=== PATIENT | female | born 1995 | race Two or more races ===

== ENCOUNTER 2017-08-24 17:27 | Inpatient (IN) | payer OTHER ==
[2017-08-24 18:15] LABS: APPEARANCE,URINE SLIGHTLY-CLOUDY; BILIRUBIN,URINE NEGATIVE (NEGATIVE); COLOR,URINE YELLOW; GLUCOSE, URINE NEGATIVE (NEGATIVE); KETONES,URINE NEGATIVE (NEGATIVE); LEUKOCYTE ESTERASE,URINE SMALL (NEGATIVE); NITRITE,URINE NEGATIVE (NEGATIVE); PROTEIN,URINE NEGATIVE (NEGATIVE); URINE SPECIFIC GRAVITY 1.009; UROBILINOGEN,URINE NEGATIVE mg/dL (<2.0)
[2017-08-24 18:30] LABS: URINE AMPHETAMINES SCREEN NEGATIVE; URINE BARBITURATES SCREEN NEGATIVE; URINE BENZODIAZEPINES SCREEN NEGATIVE; URINE COCAINE SCREEN NEGATIVE; URINE MARIJUANA (THC) SCREEN NEGATIVE; URINE METHADONE SCREEN NEGATIVE; URINE PHENCYCLIDINE SCREEN NEGATIVE
[2017-08-24] MEDS ORDERED: RINGERS SOLUTION,LACTATED 1,000 ML IV PRN (19:59)
[2017-08-24] MEDS ORDERED: PENICILLIN G POTASSIUM 5,000,000 UNIT in DEXTROSE 5%-WATER 100 ML IV ONE (19:59)
[2017-08-24] MEDS ORDERED: RINGERS SOLUTION,LACTATED 1,000 ML IV ONE (19:59)
[2017-08-24] MEDS ORDERED: PENICILLIN G-K 5 MILLION UNIT VIAL ONE ×2 (20:19→23:37)
[2017-08-24 20:41] LABS: ABSOLUTE BASOPHILS # (AUTO) 0.1 10^3/uL (0.0-0.2); ABSOLUTE LYMPHOCYTES (AUTO) 1.9 10^3/uL (0.5-4.7); ABSOLUTE MONOCYTES (AUTO) 0.8 10^3/uL (0.1-1.4); ABSOLUTE NEUT (AUTO) 11.8 10^3/uL (1.7-8.2); BASOPHILS % (AUTO) 0.5 % (0-2); EOSINOPHILS % (AUTO) 0.3 % (0-6); HEMATOCRIT 35.3 % (36.0-47.0); LYMPHOCYTES % (AUTO) 13.2 % (13-45); MEAN CORPUSCULAR HEMOGLOBIN 29.4 pg (27.0-33.4); MEAN CORPUSCULAR HGB CONC 33.8 g/dL (32.0-36.0); MEAN CORPUSCULAR VOLUME 87 fl (80-97); MONOCYTES % (AUTO) 5.7 % (3-13); PLATELET COUNT 241 10^3/uL (150-450); RED BLOOD COUNT 4.07 10^6/uL (3.72-5.28); RED CELL DISTRIBUTION WIDTH 15.9 % (11.5-14.0); SEGMENTED NEUTROPHILS % (AUTO) 80.3 % (42-78); TOTAL CELLS COUNTED % (AUTO) 100 %; WHITE BLOOD COUNT 14.7 10^3/uL (4.0-10.5)
[2017-08-24] MEDS ORDERED: MISOPROSTOL 0.2 MG TABLET ONE (21:06)
[2017-08-24] MEDS ORDERED: OXYTOCIN/NORMAL SALINE 20 UNIT/1,000 ML RTUINJ ONE (21:06)
[2017-08-24] MEDS ORDERED: LIDOCAINE 1% INJ-PF (10 MG/ML) 30 ML SDV ONE (21:06)
--- NOTE | 2017-08-24 21:58 | Admission Physical ---
Datetime Report Generated by CPN: 08/24/2017 21:58 CURRENT ADMISSION Chief Complaint: Uterine Contractions Indication for Induction: Not Applicable Admit Impression : Term, Intrauterine ; Active Labor; Intact Membranes Admit Plan: Admit to Unit; Initiate Labor Protocol ALLERGIES Medication Allergies: No Medication Allergies: No Known Allergies (08/24/2017) Latex: No Latex Allergies OBSTETRICAL HISTORY EDC: 08/25/2017 00:00 : 1 Para: 0 Term: 0 : 0 SAB: 0 IAB: 0 Ectopic: 0 Livin Cesareans: 0 VBACs: 0 Multiple Births: 0 Gestational Diabetes: No Rh Sensitization: No Incompetent Cervix: No CAMELIA: No Infertility: No ART Treatment: No Uterine Anomaly: No IUGR: No Hx Previous C/S: No Macrosomia: No Hx Loss/Stillborn: No PIH: No Hx : No Placenta Previa/Abruption: No Depression/PP Depression: No PTL/PROM: No Post Hemorrhage: No Current Procedures: Ultrasound Obstetrical History Comments: G1- current SEE RECORDS Alcohol: No Marijuana : No Cocaine: No Other Illicit Drugs: No Cigarettes: Never Smoker. [id number] MEDICAL HISTORY Diabetes: No Blood Transfusion: No Pulmonary Disease (Asthma, TB): No Breast Disease: No Hypertension: No Global Marketing Intern Surgery: No Heart Disease: No Hosp/Surgery: Yes Autoimmune Disorder: No Anesthetic Complications: No Kidney Disease: No Abnormal Pap Smear: No Neuro/Epilepsy: No Psychiatric Disorders: No Other Medical Diseases: No Hepatitis/Liver Disease: No Significant Family History: No Varicosities/Phlebitis: No Thyroid Dysfunction: No Medical History Comments: wisdom teeth 2016 INFECTIOUS HISTORY Gonorrhea: No Genital Herpes: No Chlamydia: No Tuberculosis: No Syphilis: No Hepatitis: No HIV/AIDS Exposure: No Rash or Viral Illness: No HPV: No PHYSICAL EXAM General: Normal HEENT: Normal Neurologic: Normal Thyroid: Deferred Heart: Normal Lungs: Normal Breast: Deferred Back: Normal Abdomen: Normal Genitourinary Exam: Normal Extremities: Normal DTRs: Normal Pelvic Type: Adequate Vital Signs: Reviewed VAGINAL EXAM Dilatation: 4 Effacement: 80 Station: -2 Contraction Comments: q 2-3 MEMBRANES Membranes: Intact FETUS A EGA: 39.6 Monitoring: External US FHR- Baseline: 135 Variability: Moderate 6-25bpm Accelerations: 15X15 Decelerations: None FHR Category: Category I Presentation: Vertex Admit Comment: 21yo at 39+6wga presents with regular uterine ctx and cervical change from 2cm to 4cm with ambulation. GBS pos - PCN for GBS pos. uncomplicated except for transfer from CT at 24 wks with incomplete anatomy - completed at [facility]. no other complications. She desires to not have epidural. Anticipate . PLANS FOR LABOR AND DELIVERY Labor and Delivery: None Pain Management: Natural Feeding Preference: Breast Benefit of Breast Feed Discussed: Yes Circumcision: Yes INFORMED CONSENT Informed Consent Obtained: Vaginal Delivery; Risks, Benefits and Alternatives Discussed Signature: with User ID: [email or web address]
[2017-08-25] MEDS ORDERED: PENICILLIN G POTASSIUM 2,500,000 UNIT in DEXTROSE 5%-WATER 50 ML IV SCH ×2
[2017-08-25] MEDS ORDERED: LIDOCAINE 1% INJ-PF (10 MG/ML) 30 ML SDV ONE (02:50)
[2017-08-25] MEDS ORDERED: ZOLPIDEM TARTRATE 5 MG TABLET PO PRN (03:14)
[2017-08-25] MEDS ORDERED: ACETAMINOPHEN 325 MG TABLET PO PRN (03:14)
[2017-08-25] MEDS ORDERED: PROMETHAZINE HCL 25 MG SUPP.RECT PR PRN (03:14)
[2017-08-25] MEDS ORDERED: MEASLES,MUMPS&RUBELLA VACC/PF 0.5 ML VIAL SUBCUT PRN (03:14)
[2017-08-25] MEDS ORDERED: PROMETHAZINE HCL INJ 25 MG/1 ML VIAL IV PRN (03:14)
[2017-08-25] MEDS ORDERED: DIBUCAINE 1% OINTMENT 28 GM TP PRN (03:14)
[2017-08-25] MEDS ORDERED: ACETAMINOPHEN WITH CODEINE #3 TABLET PO PRN (03:14)
[2017-08-25] MEDS ORDERED: DIPH/PERTUSS(ACELL)/TETANUS VAC/PF 0.5 ML SYR (>=10YO) IM PRN (03:14)
[2017-08-25] MEDS ORDERED: DIPHENHYDRAMINE HCL 25 MG CAPSULE PO PRN (03:14)
[2017-08-25] MEDS ORDERED: NA PHOS,M-B/NA PHOS,DI-BA (ADULT) 133 ML ENEMA PR PRN (03:14)
[2017-08-25] MEDS ORDERED: MAGNESIUM HYDROXIDE SUSP 30 ML UDCUP PO PRN (03:14)
[2017-08-25] MEDS ORDERED: MISOPROSTOL 0.2 MG TABLET PR PRN (03:14)
[2017-08-25] MEDS ORDERED: GLYCERIN/WITCH HAZEL LEAF 1 EACH MED..PAD TP PRN (03:14)
[2017-08-25] MEDS ORDERED: PSEUDOEPHEDRINE HCL 30 MG TABLET PO PRN (03:14)
[2017-08-25] MEDS ORDERED: PROMETHAZINE HCL 25 MG TABLET PO PRN (03:14)
[2017-08-25] MEDS ORDERED: OXYTOCIN/NORMAL SALINE 20 UNIT/1,000 ML RTUINJ IV PRN (03:14)
[2017-08-25] MEDS ORDERED: BENZOCAINE/MENTHOL AEROSOL SPRAY 56 ML TOP PRN (03:14)
[2017-08-25] MEDS ORDERED: IBUPROFEN 800 MG TABLET ONE (04:01)
[2017-08-25] MEDS ORDERED: ACETAMINOPHEN WITH CODEINE #3 TABLET ONE ×2 (04:01→09:19)
--- NOTE | 2017-08-25 04:50 | Warning Signs in Babies ---
VOD Warning Signs Datetime Report Generated by [facility]: 08/25/2017 04:50 VOD#608 -Warning Signs in Babies: Viewed with Parent(s)/Family (08/24/2017 17:45:Amalia Kntot RN)
--- NOTE | 2017-08-25 04:56 | Delivery Summary ---
Del Sum A-C Datetime Report Generated by CPN: 08/25/2017 04:56 DELIVERY PERSONNEL DELIVERY PERSONNEL: [id number] Delivery Doctor:: Soco Kessler MD Labor and Delivery Nurse:: Amalia Knott RNsenior windows engineer Nurse:: JS Watts Eviction Specialist:: Suyaap Rivera RN Nursery Nurse:: Suyapa Rivera RN Site Safety Manager/DIRECTOR OF INFECTION PREVENTION: Shital Baugh, ST MATERNAL INFORMATION Delivery Anesthesia: Local Medications After Delivery: Pitocin Drip 20 Units/1000ml NSS; Other-Please Comment Meds After Delivery Comment: 1000 mcg per rectum Maternal Complications: None Provider Comments: VMI delivered in [place] presentation with compound left hand. No nuchal cord. Shoulders and body delivered without difficulty. Cord doubly clamped and cut and to maternal abdomen for NRP. Placenta delivered intact spontaneously. FF at U with intermittent atony - cytotec 1000mcg placed per rectum. 3rd degree perineal laceration repaired in layerd fashion to return tissue integrity. Good hemostasis. Mother and baby stable upon provider leaving the room. LABOR SUMMARY EDC: 08/25/2017 00:00 No. Babies in Womb: 1 Attempted: No Labor Anesthesia: None LABOR INFORMATION Reason for Induction: Not Applicable Onset of Labor: 08/24/2017 12:00 Complete Dilatation: 08/25/2017 01:59 Oxytocin: N/A Group B Beta Strep: Positive Antibiotics # of Doses: 2 Antibiotics Time of Last Dose: 7765 Name of Antibiotic Given: penicillin Steroids Given: None Reason Steroids Not Administered: Not Applicable MEMBRANES Membranes Rupture Method: Artificial Rupture of Membranes: 08/24/2017 23:27 Length of Rupture (hr): 3.00 Amniotic Fluid Color: Clear Amniotic Fluid Amount: Moderate Amniotic Fluid Odor: Normal STAGES OF LABOR Stage 1 hr: 13 Stage 1 min: 59 Stage 2 hr: 0 Stage 2 min: 28 Stage 3 hr: 0 Stage 3 min: 3 Total Time in Labor hr: 14 Total Time in Labor min: 30 VAGINAL DELIVERY Episiotomy: None Laceration #1: Perineal Laceration Extension #1: Third Degree, IIIb (Greater than 50 percent ext anal sphincter thickness torn) Laceration Repair: Yes Laceration Repair Note: 3b perineal laceration repaired in layered fashion as usual reapproximating each muscle layer and then subQ layer. Good hemostasis. no sutures in rectum and rectal mucosa intact Sponge Count Correct: Yes Sharps Count Correct: Yes CSECTION DELIVERY Primary Indication: N/A Secondary Indication: N/A CSection Incidence: N/A Labor: N/A Elective: N/A CSection Incision: N/A BABY A INFORMATION Infant Delivery Date/Time: 08/25/2017 02:27 Method of Delivery: Vaginal Born in Route : No : N/A Forceps: N/A Vacuum Extraction: N/A Shoulder Dystocia : No PRESENTATION/POSITION BABY A Presentation: Cephalic Cephalic Presentation: Vertex Vertex Position: Left Occipital Anterior Breech Presentation: N/A PLACENTA INFORMATION BABY A Placenta Delivery Time : 08/25/2017 02:30 Placenta Method of Delivery: Spontaneous Placenta Status: Delivered SCORES BABY A Heart Rate 1 min: >100 bpm Resp Effort 1 min: Good Cry Reflex Irritability 1 min: Cough or Sneeze or Pulls Away Muscle Tone 1 min: Active Motion Color 1 min: Blue/Pale Resuscitation Effort 1 min: Tactile Stimulation SCORE 1 MIN: 8 Heart Rate 5 min: >100 bpm Resp Effort 5 min: Good Cry Reflex Irritability 5 min: Cough or Sneeze or Pulls Away Muscle Tone 5 min: Active Motion Color 5 min: Body [place], Extremities Blue SCORE 5 MIN: 9 INFANT INFORMATION BABY A Gestational Age at Delivery: 40.0 Gestational Status: Full Term- 39- 40.6 Weeks Outcome : Liveborn Condition : Stable Infant Sex: Male IDENTIFICATION BABY A Verification Date/Time: 08/25/2017 02:27 ID Band Number: [id number] Mother's Name Verified: Yes Infant RN Verifying : C. Ashleeilin, RN M. Hill, RN WEIGHT/LENGTH BABY A Infant Birthweight (gm): 4050 Infant Weight (lb): 8 Weight (oz): 15 Length (in): 20.50 Infant Length (cm): 52.07 CORD INFORMATION BABY A No. Cord Vessels: 3 Nuchal Cord : N/A Cord Blood Taken: Yes-For Eval (Mom's Blood Type - or O+) Infant Suction: Mouth; Nose; Pharynx ASSESSMENT BABY A Complications: None Physical Findings at Delivery: Molding of the Head Infant Respirations: Appears Normal Skin to Skin: Yes Library Page/ALS Called : No Care By: M Miguel RN/ D [place] RNC Transferred To: Remains with Mother BABY B INFORMATION : N/A SIGNATURES Signature: with User ID: [email or web address]
[2017-08-25] MEDS ORDERED: OXYCODONE-ACETAMINOPHEN 5-325 MG TABLET ONE (09:16)
[2017-08-25] MEDS: ACETAMINOPHEN WITH CODEINE #3 TABLET PO PRN ×2 (09:20→16:18)
[2017-08-25] MEDS: PRENATAL VITAMIN W DHA CAPSULE PO SCH (12:07)
[2017-08-25] MEDS: IBUPROFEN 800 MG TABLET PO SCH ×3 (12:07→21:44)
[2017-08-25] MEDS: FERROUS SULFATE 325 MG TABLET PO SCH ×2 (12:07→17:29)
[2017-08-25] MEDS: SENNOSIDES/DOCUSATE 8.6-50 MG 1 EACH TABLET PO SCH (12:07)
[2017-08-25] MEDS: DOCUSATE SODIUM 100 MG CAPSULE PO SCH ×2 (12:07→17:30)
[2017-08-25] MEDS: FAMOTIDINE 20 MG TABLET PO SCH ×2 (12:07→21:44)
[2017-08-26] MEDS: IBUPROFEN 800 MG TABLET PO SCH ×3 (07:04→21:37)
[2017-08-26 07:13] LABS: HEMATOCRIT 31.3 % (36.0-47.0); HEMOGLOBIN 10.7 g/dL (12.0-15.5); MEAN CORPUSCULAR HEMOGLOBIN 29.8 pg (27.0-33.4); MEAN CORPUSCULAR HGB CONC 34.2 g/dL (32.0-36.0); MEAN CORPUSCULAR VOLUME 87 fl (80-97); PLATELET COUNT 195 10^3/uL (150-450); RED CELL DISTRIBUTION WIDTH 16.5 % (11.5-14.0)
[2017-08-26] MEDS: ACETAMINOPHEN WITH CODEINE #3 TABLET PO PRN (07:49)
--- NOTE | 2017-08-26 09:11 | PDOC PROGRESS REPORT ---
Subjective-OB Progress Note for:: 08/26/17 Subjective: Sitting up in bed, no c/o, voiding, , desires circumcision, eating well, voiding, scant bleeding Physical Exam (OB) Vital Signs: Temp Pulse Resp BP Pulse Ox 98.2 F 80 16 121/71 100 08/26/17 07:51 08/26/17 07:51 08/26/17 07:51 08/26/17 07:51 08/26/17 07:51 Intake & Output 08/25/17 08/26/17 08/27/17 06:59 06:59 06:59 Weight 93.7 kg - PIH/Pre-Eclampsia DTR's: 2 + Clonus: Negative Headache: Absent Epigastric Pain: No Visual Changes: No - Lochia Lochia Amount: Small 10-25 ml Lochia Color: Rubra/Red - Abdomen Description: Soft, Round Hernia Present: No Fundal Description: Firm Fundal Height: u/u - u/2 Objective-Diagnostic Laboratory: 08/26/17 06:44 08/26/17 06:44 WBC 13.0 H RBC 3.60 L Hgb 10.7 L Hct 31.3 L MCV 87 MCH 29.8 MCHC 34.2 RDW 16.5 H Plt Count 195 Assessment and Plan(PN) - Assessment and Plan (1) Obstetrical laceration, third degree Is this a current diagnosis for this admission?: Yes (2) Vaginal delivery Is this a current diagnosis for this admission?: Yes - Time Spent with Patient Time with patient: Less than 15 minutes Medications reviewed and adjusted accordingly: Yes - Disposition Anticipated Discharge: Home Within: within 48 hours
[2017-08-26] MEDS: PRENATAL VITAMIN W DHA CAPSULE PO SCH (09:44)
[2017-08-26] MEDS: DOCUSATE SODIUM 100 MG CAPSULE PO SCH ×2 (09:44→17:48)
[2017-08-26] MEDS: FERROUS SULFATE 325 MG TABLET PO SCH ×2 (09:44→17:49)
[2017-08-26] MEDS: FAMOTIDINE 20 MG TABLET PO SCH ×2 (09:44→21:37)
[2017-08-26] MEDS: SENNOSIDES/DOCUSATE 8.6-50 MG 1 EACH TABLET PO SCH (09:44)
[2017-08-26 21:09] VITALS: BP 114/68
[2017-08-27] MEDS: IBUPROFEN 800 MG TABLET PO SCH ×2 (05:39→13:07)
--- NOTE | 2017-08-27 08:24 | PDOC PROGRESS REPORT ---
Subjective-OB Progress Note for:: 08/27/17 Subjective: Doing well, no c/o, + BM, Physical Exam (OB) Vital Signs: Temp Pulse Resp BP Pulse Ox 98.3 F 88 18 114/68 98 08/26/17 20:09 08/26/17 20:09 08/26/17 20:09 08/26/17 20:09 08/26/17 20:09 Intake & Output 08/26/17 08/27/17 08/28/17 06:59 06:59 06:59 Intake Total 900 Balance 900 - PIH/Pre-Eclampsia DTR's: 2 + Clonus: Negative Headache: Absent Epigastric Pain: No Visual Changes: No - Lochia Lochia Amount: Scant < 10 ml Lochia Color: Rubra/Red - Abdomen Description: Tender, Soft, Round Hernia Present: No Fundal Description: Firm, Midline Fundal Height: u/u - u/2 Objective-Diagnostic Laboratory: 08/26/17 06:44 Assessment and Plan(PN) - Assessment and Plan (1) Obstetrical laceration, third degree Is this a current diagnosis for this admission?: Yes (2) Vaginal delivery Is this a current diagnosis for this admission?: Yes - Time Spent with Patient Medications reviewed and adjusted accordingly: Yes - Disposition Anticipated Discharge: Home Within: Other - home today
--- NOTE | 2017-08-27 08:28 | PDOC DISCHARGE SUMMARY ---
Final Diagnosis Discharge Date: 08/27/17 - Final Diagnosis (1) Obstetrical laceration, third degree Is this a current diagnosis for this admission?: Yes (2) Vaginal delivery Is this a current diagnosis for this admission?: Yes Discharge Data - Discharge Medication Prescriptions: Docusate Sodium [Colace 100 mg Capsule] 100 mg PO BID #60 capsule Home Medications: Vit/Iron Fum/Folic AC [ Tablet] 1 each PO DAILY 08/24/17 Docusate Sodium [Colace 100 mg Capsule] 100 mg PO BID #60 capsule 08/27/17 Gestational Age: 40 Reason(s) for Admission: Onset of Labor, Group B Strep Positive Procedures: NST, Ultrasound Intrapartum Procedure(s): Spontaneous Vaginal Delivery Laceration-Degree: 3rd - [place] Data Baby 1 Male at 1 minute: 8 at 5 minutes: 9 Weight: 4.054 kg Home with Mother: Yes Complications: Yes - jaundice - Diagnosis Test Laboratory: Temp Pulse Resp BP Pulse Ox 98.3 F 88 18 114/68 98 08/26/17 20:09 08/26/17 20:09 08/26/17 20:09 08/26/17 20:09 08/26/17 20:09 08/24/17 08/24/17 08/26/17 17:31 20:16 06:44 RBC 4.07 3.60 L Hgb 12.0 10.7 L Hct 35.3 L 31.3 L Urine Opiates Screen NEGATIVE - Discharge information/Instructions Discharge Activity: Activity As Tolerated, No Lifting Over 10 Pounds, No Lifting /Push/Pulling, Pelvic Rest Discharge Diet: As Tolerated, Regular Disposition: HOME, SELF-CARE Follow up with: [facility] in: 2, Weeks
[2017-08-27] MEDS: DOCUSATE SODIUM 100 MG CAPSULE PO SCH (09:19)
[2017-08-27] MEDS: FERROUS SULFATE 325 MG TABLET PO SCH (09:19)
== END 2017-08-27 13:10 | disposition home or self-care (01) | DRG 775 ==
LOC: LC 17:27 → LR 19:53 → 2S 08-25 10:16
PROVIDERS: ADMIT Student in an Organized Health Care Education/Training Program; ATTEND Student in an Organized Health Care Education/Training Program
PROC: 10E0XZZ Delivery of Products of Conception, External Approach (ICD-10-PCS; principal; 2017-08-25)
PROC: 0DQR0ZZ Repair Anal Sphincter, Open Approach (ICD-10-PCS; 2017-08-25)
DX: O99.824 Streptococcus B carrier state complicating childbirth (principal); O70.22 Third degree perineal laceration during delivery, IIIb; O32.6XX0 Maternal care for compound presentation, not applicable or unspecified; Z3A.39 39 weeks gestation of pregnancy; Z37.0 Single live birth
CPT/HCPCS: 36415; 80307; 81005; 85025; 85027; 86592; 86850; 86900; 86901; 90715; J2540; J2590; J3490

== ENCOUNTER 2018-08-04 00:14 | Inpatient (IN) | payer OTHER ==
[2018-08-04] MEDS ORDERED: OXYTOCIN 10 UNIT/ML VIAL ONE (00:20)
[2018-08-04] MEDS ORDERED: LIDOCAINE 1% INJ-PF (10 MG/ML) 30 ML SDV ONE (00:20)
[2018-08-04] MEDS ORDERED: OXYTOCIN/NORMAL SALINE 20 UNIT/1,000 ML RTUINJ ONE (00:20)
[2018-08-04] MEDS ORDERED: MISOPROSTOL 0.2 MG TABLET ONE (00:20)
[2018-08-04] MEDS ORDERED: PROMETHAZINE HCL 25 MG TABLET PO PRN (00:39)
[2018-08-04] MEDS ORDERED: ACETAMINOPHEN WITH CODEINE #3 TABLET PO PRN ×2 (00:39)
[2018-08-04] MEDS ORDERED: MEASLES,MUMPS&RUBELLA VACC/PF 0.5 ML VIAL SUBCUT PRN (00:39)
[2018-08-04] MEDS ORDERED: OXYTOCIN/NORMAL SALINE 20 UNIT/1,000 ML RTUINJ IV PRN (00:39)
[2018-08-04] MEDS ORDERED: ACETAMINOPHEN 650 MG SUPP.RECT PR PRN (00:39)
[2018-08-04] MEDS ORDERED: MAGNESIUM HYDROXIDE SUSP 30 ML UDCUP PO PRN (00:39)
[2018-08-04] MEDS ORDERED: ZOLPIDEM TARTRATE 5 MG TABLET PO PRN (00:39)
[2018-08-04] MEDS ORDERED: DIBUCAINE 1% OINTMENT 56 GM TP PRN (00:39)
[2018-08-04] MEDS ORDERED: GLYCERIN/WITCH HAZEL LEAF 1 EACH MED..WIPE TP PRN (00:39)
[2018-08-04] MEDS ORDERED: DIPH/PERTUSS(ACELL)/TETANUS VAC/PF 0.5 ML SYR (>=10YO) IM PRN (00:39)
[2018-08-04] MEDS ORDERED: PROMETHAZINE HCL INJ 25 MG/1 ML VIAL IV PRN (00:39)
[2018-08-04] MEDS ORDERED: PROMETHAZINE HCL 25 MG SUPP.RECT PR PRN (00:39)
[2018-08-04] MEDS ORDERED: BENZOCAINE/MENTHOL AEROSOL SPRAY 56 ML TOP PRN (00:39)
[2018-08-04] MEDS ORDERED: PSEUDOEPHEDRINE HCL 30 MG TABLET PO PRN (00:39)
[2018-08-04] MEDS ORDERED: NA PHOS,M-B/NA PHOS,DI-BA (ADULT) 133 ML ENEMA PR PRN (00:39)
[2018-08-04] MEDS ORDERED: DIPHENHYDRAMINE HCL 25 MG CAPSULE PO PRN (00:39)
--- NOTE | 2018-08-04 00:42 | Admission Physical ---
Datetime Report Generated by CPN: 08/04/2018 00:42 CURRENT ADMISSION Chief Complaint: Uterine Contractions Indication for Induction: Not Applicable Admit Impression : Term, Intrauterine Admit Plan: Admit to Unit ALLERGIES Medication Allergies: No Known Allergies (08/24/2017) PHYSICAL EXAM General: Normal HEENT: Normal Neurologic: Normal Thyroid: Normal Heart: Normal Lungs: Normal Breast: Deferred Back: Normal Abdomen: Normal Genitourinary Exam: Normal Extremities: Normal DTRs: Normal Pelvic Type: Adequate INFORMED CONSENT Signature: with User ID: [email or web address]
[2018-08-04] MEDS ORDERED: IBUPROFEN 800 MG TABLET ONE (00:53)
[2018-08-04 01:43] LABS: ABSOLUTE LYMPHOCYTES (AUTO) 1.3 10^3/uL (0.5-4.7); ABSOLUTE MONOCYTES (AUTO) 0.6 10^3/uL (0.1-1.4); ABSOLUTE NEUT (AUTO) 10.5 10^3/uL (1.7-8.2); BASOPHILS % (AUTO) 0.2 % (0-2); EOSINOPHILS % (AUTO) 0.2 % (0-6); HEMATOCRIT 36.7 % (36.0-47.0); HEMOGLOBIN 12.3 g/dL (12.0-15.5); LYMPHOCYTES % (AUTO) 10.6 % (13-45); MEAN CORPUSCULAR HEMOGLOBIN 28.8 pg (27.0-33.4); MEAN CORPUSCULAR HGB CONC 33.5 g/dL (32.0-36.0); MEAN CORPUSCULAR VOLUME 86 fl (80-97); MONOCYTES % (AUTO) 4.9 % (3-13); PLATELET COUNT 213 10^3/uL (150-450); RED BLOOD COUNT 4.27 10^6/uL (3.72-5.28); RED CELL DISTRIBUTION WIDTH 15.1 % (11.5-14.0); SEGMENTED NEUTROPHILS % (AUTO) 84.1 % (42-78); TOTAL CELLS COUNTED % (AUTO) 100 %; WHITE BLOOD COUNT 12.5 10^3/uL (4.0-10.5)
--- NOTE | 2018-08-04 01:50 | Delivery Summary ---
Del Sum A-C Datetime Report Generated by CPN: 08/04/2018 01:50 DELIVERY PERSONNEL DELIVERY PERSONNEL: [id number] Delivery Doctor:: Manny Waddell MD Labor and Delivery Nurse:: Amalia Knott RNtopographical engineer Nurse:: Yola Gallegos RN Ore Mixer/LEAD PROJECT ENGINEER: Guera Shell ST Additional Personnel: : Ghazlaa Thornton RN MATERNAL INFORMATION Delivery Anesthesia: None Medications After Delivery: Pitocin 10 Units IM; Pitocin Drip 20 Units/1000ml NSS Estimated Blood Loss (ml): 200 Maternal Complications: Precipitous Labor (<3hrs) LABOR SUMMARY EDC: 08/15/2018 00:00 No. Babies in Womb: 1 Attempted: No Labor Anesthesia: None LABOR INFORMATION Reason for Induction: Not Applicable Onset of Labor: 08/03/2018 23:30 Complete Dilatation: 08/04/2018 00:16 Oxytocin: N/A Group B Beta Strep: neg Steroids Given: None Reason Steroids Not Administered: Not Applicable MEMBRANES Membranes Rupture Method: Spontaneous Rupture of Membranes: 08/04/2018 00:15 Length of Rupture (hr): 0.12 Amniotic Fluid Color: Clear Amniotic Fluid Amount: Small Amniotic Fluid Odor: Normal STAGES OF LABOR Stage 1 hr: 0 Stage 1 min: 46 Stage 2 hr: 0 Stage 2 min: 6 Stage 3 hr: 0 Stage 3 min: 4 Total Time in Labor hr: 0 Total Time in Labor min: 56 VAGINAL DELIVERY Episiotomy: None Laceration #1: None Laceration Extension #1: N/A Laceration Repair: Not Applicable Sponge Count Correct: N/A CSECTION DELIVERY Primary Indication: N/A Secondary Indication: N/A CSection Incidence: N/A Labor: N/A Elective: N/A CSection Incision: N/A BABY A INFORMATION Delivery Date/Time: 08/04/2018 00:22 Method of Delivery: Vaginal Born in Route : No : N/A Forceps: N/A Vacuum Extraction: N/A Shoulder Dystocia : No PRESENTATION/POSITION BABY A Presentation: Cephalic Cephalic Presentation: Vertex Vertex Position: Left Occipital Anterior Breech Presentation: N/A PLACENTA INFORMATION BABY A Placenta Delivery Time : 08/04/2018 00:26 Placenta Method of Delivery: Spontaneous Placenta Status: Delivered SCORES BABY A Heart Rate 1 min: >100 bpm Resp Effort 1 min: Good Cry Reflex Irritability 1 min: Cough or Sneeze or Pulls Away Muscle Tone 1 min: Active Motion Color 1 min: Body [place], Extremities Blue Resuscitation Effort 1 min: Tactile Stimulation SCORE 1 MIN: 9 Heart Rate 5 min: >100 bpm Resp Effort 5 min: Good Cry Reflex Irritability 5 min: Cough or Sneeze or Pulls Away Muscle Tone 5 min: Active Motion Color 5 min: Body [place], Extremities Blue Resuscitation Effort 5 min: Tactile Stimulation SCORE 5 MIN: 9 INFANT INFORMATION BABY A Infant Outcome : Liveborn Infant Condition : Stable Infant Sex: Female IDENTIFICATION BABY A Verification Date/Time: 08/04/2018 00:32 ID Band Number: [id number] Mother's Name Verified: Yes RN Verifying : Georges Additional Verifying Personnel: SJanis Thornton, RNC CORD INFORMATION BABY A No. Cord Vessels: 3 Nuchal Cord : Around Neck x1, Tight Cord Blood Taken: Yes-For Eval (Mom's Blood Type - or O+) ASSESSMENT BABY A Complications: None Physical Findings at Delivery: Within Normal Limits Skin to Skin: Yes Transferred To: Remains with Mother BABY B INFORMATION : N/A SIGNATURES Signature: with User ID: [email or web address]
--- NOTE | 2018-08-04 02:47 | Delivery Summary ---
Del Sum A-C Datetime Report Generated by CPN: 08/04/2018 02:47 DELIVERY PERSONNEL DELIVERY PERSONNEL: [id number] Delivery Doctor:: Manny Waddell MD Labor and Delivery Nurse:: Amalia Knott RNcarton inspector Nurse:: Yola Gallegos RN Awning Hanger Supervisor/PROFILER OPERATOR: Guera Shell ST Additional Personnel: : Ghazala Thornton RN MATERNAL INFORMATION Delivery Anesthesia: None Medications After Delivery: Pitocin 10 Units IM; Pitocin Drip 20 Units/1000ml NSS Estimated Blood Loss (ml): 200 Maternal Complications: Precipitous Labor (<3hrs) LABOR SUMMARY EDC: 08/15/2018 00:00 No. Babies in Womb: 1 Attempted: No Labor Anesthesia: None LABOR INFORMATION Reason for Induction: Not Applicable Onset of Labor: 08/03/2018 23:30 Complete Dilatation: 08/04/2018 00:16 Oxytocin: N/A Group B Beta Strep: neg Steroids Given: None Reason Steroids Not Administered: Not Applicable MEMBRANES Membranes Rupture Method: Spontaneous Rupture of Membranes: 08/04/2018 00:15 Length of Rupture (hr): 0.12 Amniotic Fluid Color: Clear Amniotic Fluid Amount: Small Amniotic Fluid Odor: Normal STAGES OF LABOR Stage 1 hr: 0 Stage 1 min: 46 Stage 2 hr: 0 Stage 2 min: 6 Stage 3 hr: 0 Stage 3 min: 4 Total Time in Labor hr: 0 Total Time in Labor min: 56 VAGINAL DELIVERY Episiotomy: None Laceration #1: None Laceration Extension #1: N/A Laceration Repair: Not Applicable Sponge Count Correct: N/A CSECTION DELIVERY Primary Indication: N/A Secondary Indication: N/A CSection Incidence: N/A Labor: N/A Elective: N/A CSection Incision: N/A BABY A INFORMATION Delivery Date/Time: 08/04/2018 00:22 Method of Delivery: Vaginal Born in Route : No : N/A Forceps: N/A Vacuum Extraction: N/A Shoulder Dystocia : No PRESENTATION/POSITION BABY A Presentation: Cephalic Cephalic Presentation: Vertex Vertex Position: Left Occipital Anterior Breech Presentation: N/A PLACENTA INFORMATION BABY A Placenta Delivery Time : 08/04/2018 00:26 Placenta Method of Delivery: Spontaneous Placenta Status: Delivered SCORES BABY A Heart Rate 1 min: >100 bpm Resp Effort 1 min: Good Cry Reflex Irritability 1 min: Cough or Sneeze or Pulls Away Muscle Tone 1 min: Active Motion Color 1 min: Body [place], Extremities Blue Resuscitation Effort 1 min: Tactile Stimulation SCORE 1 MIN: 9 Heart Rate 5 min: >100 bpm Resp Effort 5 min: Good Cry Reflex Irritability 5 min: Cough or Sneeze or Pulls Away Muscle Tone 5 min: Active Motion Color 5 min: Body [place], Extremities Blue Resuscitation Effort 5 min: Tactile Stimulation SCORE 5 MIN: 9 INFANT INFORMATION BABY A Infant Outcome : Liveborn Infant Condition : Stable Infant Sex: Female IDENTIFICATION BABY A Verification Date/Time: 08/04/2018 00:32 ID Band Number: [id number] Mother's Name Verified: Yes RN Verifying : Georges Additional Verifying Personnel: S. Hillary, RNC WEIGHT/LENGTH BABY A Infant Birthweight (gm): 3307 Weight (lb): 7 Weight (oz): 5 Infant Length (in): 19.50 Infant Length (cm): 49.53 CORD INFORMATION BABY A No. Cord Vessels: 3 Nuchal Cord : Around Neck x1, Tight Cord Blood Taken: Yes-For Eval (Mom's Blood Type - or O+) ASSESSMENT BABY A Infant Complications: None Physical Findings at Delivery: Within Normal Limits Skin to Skin: Yes Transferred To: Remains with Mother BABY B INFORMATION : N/A SIGNATURES Signature: with User ID: [email or web address]
[2018-08-04 04:11] LABS: URINE AMPHETAMINES SCREEN NEGATIVE; URINE BARBITURATES SCREEN NEGATIVE; URINE BENZODIAZEPINES SCREEN NEGATIVE; URINE COCAINE SCREEN NEGATIVE; URINE MARIJUANA (THC) SCREEN NEGATIVE; URINE METHADONE SCREEN NEGATIVE; URINE PHENCYCLIDINE SCREEN NEGATIVE
[2018-08-04] MEDS: IBUPROFEN 800 MG TABLET PO SCH ×3 (05:17→22:17)
[2018-08-04] MEDS: FERROUS SULFATE 325 MG TABLET PO SCH ×2 (10:00→17:44)
[2018-08-04] MEDS: DOCUSATE SODIUM 100 MG CAPSULE PO SCH ×2 (10:01→17:44)
[2018-08-04] MEDS: FAMOTIDINE 20 MG TABLET PO SCH ×2 (10:01→22:17)
[2018-08-04] MEDS: SENNOSIDES/DOCUSATE 8.6-50 MG 1 EACH TABLET PO SCH (10:01)
[2018-08-04] MEDS: PRENATAL VITAMIN W DHA CAPSULE PO SCH (10:01)
[2018-08-05] MEDS: IBUPROFEN 800 MG TABLET PO SCH (06:39)
[2018-08-05 07:25] LABS: HEMOGLOBIN 12.3 g/dL (12.0-15.5); MEAN CORPUSCULAR HEMOGLOBIN 29.5 pg (27.0-33.4); MEAN CORPUSCULAR HGB CONC 34.2 g/dL (32.0-36.0); MEAN CORPUSCULAR VOLUME 86 fl (80-97); PLATELET COUNT 221 10^3/uL (150-450); RED BLOOD COUNT 4.17 10^6/uL (3.72-5.28); RED CELL DISTRIBUTION WIDTH 15.4 % (11.5-14.0); WHITE BLOOD COUNT 10.3 10^3/uL (4.0-10.5)
[2018-08-05 09:08] VITALS: BP 118/74
[2018-08-05] MEDS: SENNOSIDES/DOCUSATE 8.6-50 MG 1 EACH TABLET PO SCH (09:48)
[2018-08-05] MEDS: PRENATAL VITAMIN W DHA CAPSULE PO SCH (09:48)
[2018-08-05] MEDS: FAMOTIDINE 20 MG TABLET PO SCH (09:48)
[2018-08-05] MEDS: FERROUS SULFATE 325 MG TABLET PO SCH (09:48)
[2018-08-05] MEDS: DOCUSATE SODIUM 100 MG CAPSULE PO SCH (09:48)
--- NOTE | 2018-08-05 10:25 | PDOC PROGRESS REPORT ---
Subjective-OB Progress Note for:: 08/05/18 Subjective: Pt doing well, no concerns. She reports light bleeding, regular diet and voiding without difficulty. She would like to go home today. Physical Exam (OB) Vital Signs: Temp Pulse Resp BP Pulse Ox 98.2 F 79 16 118/74 100 08/05/18 08:00 08/05/18 08:00 08/05/18 08:00 08/05/18 08:00 08/05/18 08:00 Intake & Output 08/04/18 08/05/18 08/06/18 06:59 06:59 06:59 Intake Total 1000 Balance 1000 Weight 213 kg - PIH/Pre-Eclampsia Clonus: Negative Headache: Absent Epigastric Pain: No Visual Changes: No - Lochia Lochia Amount: Small 10-25 ml Lochia Color: Rubra/Red - Abdomen Description: Soft, Round Hernia Present: No Fundal Description: Firm, Midline Fundal Height: u/u - u/2 Objective-Diagnostic Laboratory: 08/05/18 07:09 08/05/18 07:09 WBC 10.3 RBC 4.17 Hgb 12.3 Hct 36.0 MCV 86 MCH 29.5 MCHC 34.2 RDW 15.4 H Plt Count 221 Assessment and Plan(PN) - Assessment and Plan (1) Active labor at term Is this a current diagnosis for this admission?: Yes (2) Vaginal delivery Is this a current diagnosis for this admission?: Yes - Time Spent with Patient Time with patient: Less than 15 minutes Medications reviewed and adjusted accordingly: Yes - Disposition Anticipated Discharge: Home Within: within 24 hours
--- NOTE | 2018-08-05 10:26 | PDOC DISCHARGE SUMMARY ---
Final Diagnosis Discharge Date: 08/05/18 - Final Diagnosis (1) Active labor at term Is this a current diagnosis for this admission?: Yes (2) Vaginal delivery Is this a current diagnosis for this admission?: Yes Discharge Data - Discharge Medication Home Medications: Vit/Iron Fum/Folic AC [ Tablet] 1 each PO DAILY 08/24/17 Docusate Sodium [Colace 100 mg Capsule] 100 mg PO BID #60 capsule 08/27/17 Reason(s) for Admission: Onset of Labor Procedures: NST Intrapartum Procedure(s): Spontaneous Vaginal Delivery - Diagnosis Test Laboratory: Temp Pulse Resp BP Pulse Ox 98.2 F 79 16 118/74 100 08/05/18 08:00 08/05/18 08:00 08/05/18 08:00 08/05/18 08:00 08/05/18 08:00 08/04/18 08/04/18 08/05/18 01:34 03:48 07:09 RBC 4.27 4.17 Hgb 12.3 12.3 Hct 36.7 36.0 Urine Opiates Screen NEGATIVE - Discharge information/Instructions Discharge Activity: Balance Activity w/Rest, Pelvic Rest Discharge Diet: Regular Disposition: HOME, SELF-CARE Follow up with: [facility] in: 4, Weeks
== END 2018-08-05 13:24 | disposition home or self-care (01) | DRG 807 ==
LOC: LC 00:14 → LR 00:26 → 2S 02:40
PROVIDERS: ADMIT Obstetrics & Gynecology Gynecology; ATTEND Obstetrics & Gynecology Gynecology
PROC: 10E0XZZ Delivery of Products of Conception, External Approach (ICD-10-PCS; principal; 2018-08-04)
PROC: 4A1HXCZ Monitoring of Products of Conception, Cardiac Rate, External Approach (ICD-10-PCS; 2018-08-04)
DX: O69.1XX0 Labor and delivery complicated by cord around neck, with compression, not applicable or unspecified (principal); Z37.0 Single live birth; O62.3 Precipitate labor; Z3A.00 Weeks of gestation of pregnancy not specified
CPT/HCPCS: 36415; 80307; 85025; 85027; 86592; 86850; 86900; 86901; J2590; J3490